=== PATIENT | male | born 1965 | race Caucasian/White ===

== ENCOUNTER 2017-11-01 12:41 | Emergency (ER) | payer BC ==
[2017-11-01 12:50] VITALS: BP 138/61
[2017-11-01] MEDS ORDERED: diphenhydrAMINE 50 MG/ML SDV IVPUSH ONE (12:52)
[2017-11-01] MEDS ORDERED: Famotidine 20 MG/2 ML SDV IVPUSH ONE (12:53)
[2017-11-01] MEDS ORDERED: methylPREDNISolone Sodium Succinate 125 MG/2 ML SDV IVPUSH ONE (12:53)
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
[2017-11-01] MEDS ORDERED: Sodium Chloride 0.9% 1,000 ML IV SCH (13:00)
== END 2017-11-01 14:15 | disposition home or self-care (01) ==
LOC: JD.ED 12:41
DX: T63.441A Toxic effect of venom of bees, accidental (unintentional), initial encounter (principal)
CPT/HCPCS: 96361; 96374; 96375; 99283; J1200; J2930; J3490; J7040; 99284

== ENCOUNTER 2018-12-01 17:35 | Emergency (ER) | payer BC, OTHER ==
[2018-12-01 17:47] VITALS: BP 165/99
[2018-12-01] MEDS ORDERED: Ketorolac 30 MG/ML SDV IM ONE (18:05)
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
== END 2018-12-01 19:12 | disposition home or self-care (01) ==
LOC: JD.ED 17:35
DX: G51.0 Bell's palsy (principal); F17.210 Nicotine dependence, cigarettes, uncomplicated; Z79.899 Other long term (current) drug therapy
CPT/HCPCS: 96372; 99284; J1885

== ENCOUNTER 2018-12-15 09:48 | Emergency (ER) | payer BC ==
[2018-12-15 10:17] VITALS: BP 141/91; PULSE 76
[2018-12-15] MEDS ORDERED: HYDROmorphone 1 MG/ML Syringe IM ONE (11:15)
--- NOTE | 2018-12-15 11:21 | EDM.PDOC ---
ED HPI GENERAL MEDICAL PROBLEM - General Chief Complaint: Headache Stated Complaint: SEVERE MIGRAINE Time Seen by Provider: 12/15/18 10:39 Source of Information: Reports: Patient, Old Records (ED 12/01/2018, CT/head 2018) History Limitations: Reports: No Limitations - History of Present Illness INITIAL COMMENTS - FREE TEXT/NARRATIVE: Medical records indicate that the patient was seen in this ED on 12/01/2018 for a left-sided facial droop, inability to completely close his left eye, and numbness and tingling to the left side of his face, symptoms that had developed that morning. He reported having a headache, and he stated that he usually got a headache whenever he took prednisone, although it is not clear that he had been on prednisone recently. He reported that he had a history of left Hodge palsy approximately 20 years ago, but he does not recall how it was treated at the time. He also reported that he was previously under a pain contract for chronic back pain, and he requested pain medication during that visit. The patient was diagnosed with left-sided Hodge palsy, House-Brackmann grade IV. His headache was treated with Toradol in the ED, he was discharged home with prescriptions for prednisone 60 mg per day x 3 weeks, Valtrex 1 g TID x 1 week, and Ultram 50 mg Q6 hrs prn, #5. He was to follow-up with in the clinic within 7 -10 days. The patient tells me that he saw a PCP on 12/10/2018. A CT scan of his head was performed, which demonstrated moderate mucosal thickening within the sphenoid sinus and mild mucosal thickening within the visualized posterior left ethmoid sinus. The mastoid sinuses were clear. No other abnormalities were found. The patient states that his PCP prescribed tramadol for him. The patient does not have a follow-up appointment in the clinic. The patient now returns to the ED stating that he has a "migraine" headache, felt in the back left of his head. By "migraine", the patient means a bad headache; he does not have a previous diagnosis of migraine headaches. He describes the character of his headache as sharp/shooting/stabbing/throbbing. He reports bilateral blurry vision, but no other visual changes, such as flashing lights, wavy lines, or halos. No photophobia or phonophobia. No nausea or vomiting. No tingling, numbness, or weakness other than to the left side of his face. He states that the headache developed 9/4 or 9/5, and is progressively getting worse. He states that tramadol is not helping. The patient's PCP is ANNY Hernandez. Left Headache Pain Score (Numeric/FACES): 8 - Related Data Allergies Allergy/AdvReac Type Severity Reaction Status Date / Time No Known Allergies Allergy Verified 12/15/18 10:08 Home Meds: Home Meds traMADol [Ultram] 50 mg PO Q6H PRN #5 tab 12/01/18 [Rx] Past Medical History Musculoskeletal History: Reports: Fracture (left lower extremity) Neurological History: Reports: Other (See Below) (Left Hodge palsy around 1998) - Past Surgical History HEENT Surgical History: Reports: Oral Surgery (upper dental extractions) GI Surgical History: Reports: Appendectomy, Hernia, Inguinal (right) Neurological Surgical History: Reports: Lumbar Spine (discectomy) Musculoskeletal Surgical History: Reports: ORIF (right foot), Shoulder Surgery ( bilateral, arthroscopic) Social & Family History - Family History Family Medical History: Noncontributory Oncologic: Reports: Esophageal - Tobacco Use Smoking Status *Q: Current Every Day Smoker Years of Tobacco use: 35 Packs/Tins Daily: 1.5 Packs/Tins Daily Comment: Down from 2 ppd - Caffeine Use Caffeine Use: Reports: Soda - Alcohol Use Alcohol Use History: Yes Alcohol Use Frequency: Socially - Recreational Drug Use Recreational Drug Use: Yes Drug Use in Last 12 Months: No Recreational Drug Type: Reports: Marijuana/Hashish (last smoked 2017) - Living Situation & Occupation Living situation: Reports: , with Significant Other (Fiance) Occupation: Employed ([employer]) ED ROS GENERAL - Review of Systems Review Of Systems: ROS reveals no pertinent complaints other than HPI. Musculoskeletal: Reports: Back Pain (chronic) - Physical Exam Exam: See Below Exam Limited By: No Limitations General Appearance: Alert, WD/WN, No Apparent Distress Eye Exam: Left Eye: Other (Eye does not completely close the patient relaxes), Bilateral Eye: EOMI Ears: Normal External Exam, Normal Canal, Hearing Grossly Normal, Normal TMs Nose: Normal Inspection, Normal Mucosa, No Blood Throat/Mouth: Normal Inspection, Normal Lips, Normal Teeth, Normal Gums, Normal Oropharynx, Normal Voice, No Airway Compromise Head Exam: Atraumatic, Normocephalic Neck: Normal Inspection, Supple, Non-Tender, Full Range of Motion. No: Lymphadenopathy (L), Lymphadenopathy (R) Respiratory/Chest: No Respiratory Distress, Lungs Clear, Normal Breath Sounds, No Accessory Muscle Use Cardiovascular: Normal Peripheral Pulses, Regular Rate, Rhythm, No Edema, No Gallop, No JVD, No Murmur, No Rub GI/Abdominal: Normal Bowel Sounds, Soft, Non-Tender, No Organomegaly, No Distention, No Abnormal Bruit, No Mass (Male) Exam: Deferred Rectal (Males) Exam: Deferred Neuro Exam (Abbreviated): Alert, Oriented, Normal Cognition, No Motor/Sensory Deficits, Other (Left facial droop that involves the forehead, consistent with left Hodge palsy, House-Brackmann grade IV) Back Exam: Normal Inspection, Full Range of Motion, NT Extremities: Normal Inspection, Normal Range of Motion, No Pedal Edema, Normal Capillary Refill Psychiatric: Normal Affect Skin Exam: Warm, Dry, Intact, Normal Color, No Rash Course - Vital Signs Last Recorded V/S: Last Vital Signs Temp 37.1 C 12/15/18 10:09 Pulse 76 12/15/18 10:09 Resp 16 12/15/18 10:09 BP 141/91 H 12/15/18 10:09 Pulse Ox 100 12/15/18 10:09 - Orders/Labs/Meds Meds: Medications Discontinued Medications Generic Name Dose Route Start Last Admin Trade Name Freq PRN Reason Stop Dose Admin Hydromorphone HCl 1 mg 12/15/18 11:15 12/15/18 11:20 Dilaudid IM 12/15/18 11:16 1 mg ONETIME ONE Administration - Re-Assessments/Exams Free Text/Narrative Re-Assessment/Exam: 12/15/18 11:16 I agree with the earlier diagnosis of left-sided Hodge palsy, and I agree that it is a House-Brackmann grade IV. Further, I agree with the recommended treatment of prednisone 60 mg daily for a week, and Valtrex 1 g TID for a week. I explained to the patient that, generally speaking, headaches should not be treated with opioids, as that tends to cause an upward spiral (the exception being headaches due to an intracranial hemorrhage). It is unclear to me why the patient has a headache at this time. It is not a migraine. The patient believes that it is due to his Hodge palsy, which I doubt. It may be due to the prednisone that he is taking, as headaches are a known side effect of prednisone , although the patient reported to Ms. Weinstein on 12/01/2018 that he already had a headache, prior to being started on prednisone. The headache may also be related to the sinusitis that was found on his CT scan. For today's purposes, the patient will receive a single IM injection of Dilaudid , to see if we can knock out his current headache, but I will not be prescribing opioids for home. I am recommending that he start using a nasal steroid spray to treat his sinusitis. He will then follow-up with Ms. Pennington at the next available appointment. Departure - Departure Time of Disposition: 11:19 Disposition: Home, Self-Care 01 Condition: Good Clinical Impression: Headache, Left-sided Hodge's palsy, Sinusitis - Discharge Information *PRESCRIPTION DRUG MONITORING PROGRAM REVIEWED*: Not Applicable *COPY OF PRESCRIPTION DRUG MONITORING REPORT IN PATIENT SERGIO: Not Applicable Instructions: Hodge Palsy, Adult, General Headache Without Cause, Sinusitis, Adult Referrals: Delores Pennington PA-C [Primary Care Provider] - Forms: ED Department Discharge Additional Instructions: You were seen in the emergency room for a excessively worsening left sided headache that developed on 12/01/2018. The cause of your headache is not entirely clear, but may be due to sinusitis that was found on the CT scan of your head on 12/10/2018. You were given a single shot of the opioid Dilaudid in the ER. Going forward, we recommend that you purchase and use as directed an over-the- counter nasal steroid spray, such as fluticasone (Flonase), or mometasone ( Nasonex). A generic is just as good as the brand name. Stay well hydrated. Follow-up with your PCP, ANNY Hernandez, at the next available appointment. If any other problems, please do not hesitate to return to the ER.
== END 2018-12-15 11:32 | disposition home or self-care (01) ==
LOC: JD.ED 09:48
DX: G51.0 Bell's palsy (principal); J32.9 Chronic sinusitis, unspecified; F17.210 Nicotine dependence, cigarettes, uncomplicated; Z90.49 Acquired absence of other specified parts of digestive tract
CPT/HCPCS: 96372; 99283; J1170

== ENCOUNTER 2019-03-10 11:51 | Emergency (ER) | payer BC ==
[2019-03-10 12:01] VITALS: BP 133/83; PULSE 59
--- NOTE | 2019-03-10 12:05 | EDM.PDOC ---
ED HPI GENERAL MEDICAL PROBLEM - General Chief Complaint: Respiratory Problem Stated Complaint: DIZZY AND LIGHTHEADED AND COUGH Time Seen by Provider: 03/10/19 12:04 - History of Present Illness INITIAL COMMENTS - FREE TEXT/NARRATIVE: 53-year-old male presents emergency room with cough and fevers. Patient has a worsening cough over the last 3 days. He thinks he may have run a fever. He coughs up some sputum. The patient quit smoking about 3 months ago. He is not currently treated for any medical problems. Along with this cough he seems to be achy all over no nausea or vomiting no abdominal symptoms. He has no chest pain or chest pressure. Generalized Pain Score (Numeric/FACES): 6 - Related Data Allergies Allergy/AdvReac Type Severity Reaction Status Date / Time No Known Allergies Allergy Verified 12/15/18 10:08 Past Medical History HEENT History: Reports: None Cardiovascular History: Reports: None Respiratory History: Reports: None Genitourinary History: Reports: None Musculoskeletal History: Reports: Fracture (left lower extremity) Other Musculoskeletal History: vegetable loader fell on pt and shattered all boned left leg/toes Neurological History: Reports: Other (See Below) (Left Hodge palsy around 1998) Other Neuro History: [place] Psychiatric History: Reports: None Endocrine/Metabolic History: Reports: None Hematologic History: Reports: None Immunologic History: Reports: None Oncologic (Cancer) History: Reports: None Dermatologic History: Reports: None - Infectious Disease History Infectious Disease History: Reports: None - Past Surgical History HEENT Surgical History: Reports: Oral Surgery (upper dental extractions) GI Surgical History: Reports: Appendectomy, Hernia, Inguinal (right) Neurological Surgical History: Reports: Lumbar Spine (discectomy) Musculoskeletal Surgical History: Reports: ORIF (right foot), Shoulder Surgery ( bilateral, arthroscopic) Social & Family History - Family History Family Medical History: Noncontributory Oncologic: Reports: Esophageal - Caffeine Use Caffeine Use: Reports: Soda - Living Situation & Occupation Living situation: Reports: , with Significant Other (Fiance) Occupation: Employed (Parts) ED ROS GENERAL - Review of Systems Review Of Systems: See Below Constitutional: Reports: Malaise. Denies: No Symptoms HEENT: Reports: No Symptoms Respiratory: Reports: Cough, Sputum Cardiovascular: Reports: No Symptoms. Denies: Chest Pain Endocrine: Reports: No Symptoms GI/Abdominal: Reports: No Symptoms : Reports: No Symptoms Musculoskeletal: Reports: Other (He is achy all over) Skin: Reports: No Symptoms Neurological: Reports: No Symptoms ED EXAM, GENERAL - Physical Exam Exam: See Below Exam Limited By: No Limitations General Appearance: Alert, No Apparent Distress Eye Exam: Bilateral Eye: Normal Inspection Ears: Normal External Exam, Normal Canal, Hearing Grossly Normal, Normal TMs Nose: Normal Inspection, Normal Mucosa, No Blood Throat/Mouth: Normal Inspection, Normal Lips, Normal Gums, Normal Oropharynx, Normal Voice, No Airway Compromise, Other (Patient has dentures on the uppers and is missing some teeth on lower). No: Normal Teeth Head: Atraumatic, Normocephalic Neck: Normal Inspection, Supple, Non-Tender, Full Range of Motion. No: Lymphadenopathy (L), Lymphadenopathy (R) Respiratory/Chest: No Respiratory Distress, Lungs Clear, Normal Breath Sounds Cardiovascular: Regular Rate, Rhythm, No Edema, No Murmur GI/Abdominal: Normal Bowel Sounds, Soft, Non-Tender Back Exam: Normal Inspection. No: CVA Tenderness (L), CVA Tenderness (R) Neurological: Alert, Oriented, Normal Cognition Course - Vital Signs Last Recorded V/S: Last Vital Signs Temp 36.3 C 03/10/19 11:58 Pulse 59 L 03/10/19 11:58 Resp 20 03/10/19 11:58 BP 133/83 03/10/19 11:58 Pulse Ox 100 03/10/19 11:58 - Orders/Labs/Meds Orders: Active Orders 24 hr Category Date Time Status RT Post Treatment Assessment [RC] Click to Edit Care 03/10/19 12:54 Ordered RT Pre-Treatment Assessment [RC] Click to Edit Care 03/10/19 12:54 Ordered Chest 2V [CR] Stat Exams 03/10/19 12:13 Taken Meds: Medications Discontinued Medications Generic Name Dose Route Start Last Admin Trade Name Freq PRN Reason Stop Dose Admin Albuterol 0 gm 03/10/19 12:54 Proventil Hfa INH 03/10/19 12:55 ONETIME ONE - Re-Assessments/Exams Free Text/Narrative Re-Assessment/Exam: 03/10/19 12:55 Chest x-ray is unremarkable no acute cardiopulmonary changes he has some changes consistent with the emphysema this is mild. At this point we'll start him on albuterol MDI 2 puffs every 4 hours while awake. Tylenol for the aches and pains return with any questions problems worsening symptoms. Departure - Departure Time of Disposition: 12:57 Disposition: DC/Tfer to Court [facility] Law Enf 21 Clinical Impression: Viral respiratory illness, Acute bronchitis - Discharge Information Referrals: PCP,None [Primary Care Provider] - Forms: ED Department Discharge Additional Instructions: Return to the emergency room with any questions problems or worsening symptoms. Use the albuterol inhaler 2 puffs every 4 hours while you're awake. Use Tylenol for aches and pains and fever control. Push lots of fluids. Sepsis Event Note - Evaluation Sepsis Screening Result: No Definite Risk - Focused Exam Vital Signs: Vital Signs Temp Pulse Resp BP Pulse Ox 03/10/19 11:58 36.3 C 59 L 20 133/83 100 Date Exam was Performed: 03/10/19 Time Exam was Performed: 12:55 - My Orders Last 24 Hours: My Active Orders 03/10/19 12:13 Chest 2V [CR] Stat 03/10/19 12:54 RT Post Treatment Assessment [RC] Click to Edit RT Pre-Treatment Assessment [RC] Click to Edit - Assessment/Plan Last 24 Hours: My Active Orders 03/10/19 12:13 Chest 2V [CR] Stat 03/10/19 12:54 RT Post Treatment Assessment [RC] Click to Edit RT Pre-Treatment Assessment [RC] Click to Edit
[2019-03-10] MEDS ORDERED: Albuterol 6.7 GM Inhaler INH ONE (12:54)
--- NOTE | 2019-03-10 13:00 | CR ---
Chest: Two views of the chest were obtained. Comparison: No prior chest x-ray. Heart size and mediastinum are normal. Lungs are clear. Bony structures are unremarkable. Impression: 1. Nothing acute is seen on two-view chest x-ray. Diagnostic code #1 This report was dictated in [place] Standard Time
== END 2019-03-10 13:18 ==
LOC: JD.ED 11:51
DX: J98.9 Respiratory disorder, unspecified (principal); J20.9 Acute bronchitis, unspecified
CPT/HCPCS: 71046; 94640; 99284; A9270; 99283

== ENCOUNTER 2021-09-07 19:59 | Emergency (ER) | payer BC ==
[2021-09-07 20:16] VITALS: BP 128/69; PULSE 70
[2021-09-07] MEDS ORDERED: Diphtheria,Pertussis(Acell),Tetanus Vaccine 0.5 ML Syringe IM ONE (20:24)
== END 2021-09-07 20:45 | disposition home or self-care (01) ==
LOC: JD.ED 19:59
DX: S61.210A Laceration without foreign body of right index finger without damage to nail, initial encounter (principal); Z23 Encounter for immunization; W26.8XXA Contact with other sharp object(s), not elsewhere classified, initial encounter
CPT/HCPCS: 90471; 90715; 99282

== ENCOUNTER 2022-10-23 20:08 | Emergency (ER) | payer BC ==
[2022-10-23] MEDS ORDERED: HYDROmorphone 1 MG/ML Syringe IM ONE (20:37)
[2022-10-24 00:20] VITALS: BP 140/75; PULSE 72
== END 2022-10-23 22:23 | disposition home or self-care (01) ==
LOC: JD.ED 20:08
DX: S80.812A Abrasion, left lower leg, initial encounter (principal); S50.811A Abrasion of right forearm, initial encounter; S00.81XA Abrasion of other part of head, initial encounter; S00.511A Abrasion of lip, initial encounter; M25.562 Pain in left knee; F17.210 Nicotine dependence, cigarettes, uncomplicated; W10.9XXA Fall (on) (from) unspecified stairs and steps, initial encounter; Y93.01 Activity, walking, marching and hiking; Y92.828 Other wilderness area as the place of occurrence of the external cause
CPT/HCPCS: 73140; 73562; 96372; 99283; J1170

== ENCOUNTER 2024-04-28 09:11 | Emergency (ER) | payer BC ==
[2024-04-28] MEDS: LORazepam 2 MG/ML SDV IVPUSH ONE (10:51)
[2024-04-28] MEDS: Sodium Chloride 0.9% 10 ML Syringe FLUSH PRN (10:53)
[2024-04-28] MEDS: Ondansetron 4 MG/2 ML SDV IVPUSH ONE (10:53)
[2024-04-28] MEDS: Sodium Chloride 0.9% 1,000 ML IV SCH (10:55)
[2024-04-28 11:04] LABS: BASOPHILS PERCENT AUTO 0.1 % (0.0-1.0); EOSINOPHILS PERCENT AUTO 0.1 % (0.0-6.0); HEMATOCRIT 36.5 % (42.0-52.0); HEMOGLOBIN 12.6 gm/dl (14.0-18.0); IMMATURE GRAN ABSOLUTE AUTO 0.05 K/mm3 (0.00-0.05); IMMATURE GRAN PERCENT AUTO 0.4 % (0.0-0.4); LYMPHOCYTES ABSOLUTE AUTO 1.4 K/mm3 (1.0-4.8); MEAN CORPUSCULAR HEMOGLOBIN 30.9 pg (28.0-32.0); MEAN CORPUSCULAR HGB CONC 34.5 g/dl (32.0-36.0); MEAN CORPUSCULAR VOLUME 89.5 fl (83.0-99.0); MEAN PLATELET VOLUME 9.2 fl (9.4-12.4); MONOCYTES ABSOLUTE AUTO 0.8 K/mm3 (0.0-0.8); MONOCYTES PERCENT AUTO 5.9 % (0.0-8.0); NEUTROPHILS ABSOLUTE AUTO 11.4 K/mm3 (1.8-7.7); NEUTROPHILS PERCENT AUTO 83.5 % (41.0-71.0); PLATELET COUNT,PLT 255 K/mm3 (150-400); RED BLOOD CELL COUNT 4.08 M/mm3 (4.52-5.90); WHITE BLOOD CELL COUNT,WBC 13.65 K/mm3 (3.9-11.3)
[2024-04-28 11:28] LABS: A/G RATIO 1.1 (1-2); ALANINE AMINOTRANSFERASE,ALT 23 U/L (16-63); ALBUMIN 3.3 g/dl (3.4-5.0); ALKALINE PHOSPHATASE 128 U/L (46-116); ANION GAP 11.9 (5-15); ASPARTATE AMNIOTRANSFERASE,AST 10 U/L (15-37); BILIRUBIN TOTAL 0.8 mg/dL (0.2-1.0); BLOOD UREA NITROGEN,BUN 4 mg/dL (7-18); BUN/CREATININE RATIO 4.4 (14-18); CALCIUM 8.2 mg/dL (8.5-10.1); CARBON DIOXIDE,CO2 28 mEq/L (21-32); CHLORIDE,CL 103 mEq/L (98-107); CREATININE 0.9 mg/dL (0.7-1.3); EST CRCL DRUG DOSING (CG) 87.82 mL/min; ESTIMATED GFR 99 mL/min (>60); GLUCOSE RANDOM 96 mg/dL (70-99); MAGNESIUM 1.9 mg/dL (1.8-2.4); POTASSIUM,K 3.9 mEq/L (3.5-5.1); PROTEIN TOTAL,TP 6.3 g/dl (6.4-8.2); SODIUM,NA 139 mEq/L (136-145); TSH 0.381 uIU/mL (0.358-3.74)
[2024-04-28 11:29] LABS: TROPONIN I HIGH SENSITIVITY < 4 pg/mL (<=76)
[2024-04-28 11:55] LABS: BARBITURATE SCREEN,URINE NEGATIVE (CUTOFF=200); BENZODIAZEPINES SCREEN,URINE NEGATIVE (CUTOFF=150); BUPRENORPHINE SCREEN,URINE NEGATIVE (CUTOFF=10); METHADONE SCREEN, URINE NEGATIVE (CUT0FF=200); METHAMPHETAMINES SCREEN, URINE NEGATIVE (CUTOFF=500); OXYCODONE SCREEN,URINE NEGATIVE (CUT0FF=100); THC SCREEN,URINE 20 NG/ML NEGATIVE (CUTOFF=50)
[2024-04-28 11:56] LABS: AMPHETAMINES SCREEN, URINE NEGATIVE (CUTOFF=500)
[2024-04-28 12:55] VITALS: BP 105/62; PULSE 58
== END 2024-04-28 12:55 | disposition home or self-care (01) ==
LOC: JD.ED 09:11
DX: F11.23 Opioid dependence with withdrawal (principal); Z90.49 Acquired absence of other specified parts of digestive tract; F17.210 Nicotine dependence, cigarettes, uncomplicated
CPT/HCPCS: 36415; 80053; 80306; 80307; 83735; 84443; 84484; 85025; 93005; 96361; 96374; 96375; 99284; J2060; J2405; J7030; 93010

== ENCOUNTER 2024-09-25 09:52 | Emergency (ER) | payer BC ==
[2024-09-25] MEDS: cefTRIAXone 1 GM, Lidocaine 1% 2.1 ML IM ONE (10:36)
[2024-09-25] MEDS: Lidocaine 1% 10 ML MDV INJECT ONE (10:37)
[2024-09-25] MEDS: Sulfamethoxazole/Trimethoprim 800-160 MG Tab PO ONE (10:37)
[2024-09-25] MEDS: Diphtheria,Pertussis(Acell),Tetanus Vaccine 0.5 ML Syringe IM ONE (10:37)
[2024-09-25 16:09] VITALS: BP 122/79; PULSE 70
== END 2024-09-25 13:25 | disposition home or self-care (01) ==
LOC: JD.ED 09:52
DX: L03.114 Cellulitis of left upper limb (principal); L03.113 Cellulitis of right upper limb; Z79.899 Other long term (current) drug therapy
CPT/HCPCS: 10060; 87070; 87075; 87205; 90471; 90715; 96372; 99283; A9270; J0696; J2003; 99284